=== PATIENT | female | born 2000 | race Caucasian/White ===

== ENCOUNTER 2022-04-10 11:01 | Outpatient (CLI) | payer BC, SELFPAY ==
--- NOTE | ~2022-04-10 | US_ITS ---
EXAMINATION: US pelvic complete DATE: 04/10/2022 12:09 INDICATION: Generalized pelvic pain. TECHNIQUE: Multiple transabdominal and endovaginal sonographic images of the pelvis were obtained. COMPARISON: None. FINDINGS: The uterus measures 10.1 x 3.3 x 3.7 cm. The endometrial complex measures 2 mm in thickness. The rig ht ovary measures 2.2 x 1.1 x 1.9 cm. The left ovary measures 3.3 x 1.4 x 2.7 cm. There is normal vas cular flow in the ovaries. There is no free fluid in the pelvis. Shadowing structure in the region of the vaginal vault may represent a reported Nuva ring. IMPRESSION: 1. Normal pelvic ultrasound. Reviewed, dictated and finalized at location A.
== END 2022-04-10 11:02 | disposition home or self-care (01) ==
LOC: ANHIMG 11:06
PROVIDERS: PCP Internal Medicine; Visit Provider Nurse Practitioner Obstetrics & Gynecology
DX: R10.2 Pelvic and perineal pain (principal); N93.9 Abnormal uterine and vaginal bleeding, unspecified
CPT/HCPCS: 76856

== ENCOUNTER 2023-07-06 10:15 | Emergency (ER) | payer BC, SELFPAY ==
--- NOTE | ~2023-07-06 | XR_ITS ---
EXAMINATION: XR foot RT min 3V DATE: 07/06/2023 12:09 INDICATION: Right fifth toe injury and pain. TECHNIQUE: 4 views of right foot were obtained. COMPARISON: Right ankle radiographs 10/24/2018 FINDINGS: Bone alignment is normal. No fracture. Joint spaces are normal. IMPRESSION: 1. No fracture. Reviewed, dictated and finalized at location A. IMPRESSION: 1. No fracture.
--- NOTE | ~2023-07-06 | XR_ITS ---
EXAMINATION: XR chest 2V DATE: 07/06/2023 11:00 INDICATION: Shortness of breath and midsternal chest pain TECHNIQUE: PA and lateral views of the chest were obtained. COMPARISON: None FINDINGS: The lungs are clear with no focal airspace opacities, pulmonary edema, pleural effusion or pneumothor ax. The cardiomediastinal silhouette is normal. Visualized bones and soft tissues are unremarkable. IMPRESSION: 1. Normal chest radiograph. Reviewed, dictated and finalized at location L. IMPRESSION: 1. Normal chest radiograph.
--- NOTE | 2023-07-06 10:16 | ECG_ITS ---
Measurements Intervals [place] Rate: 101 P: 70 ND: 129 QRS: 50 QRSD: 66 T: -5 QT: 328 QTc: 425 Interpretive Statements SINUS TACHYCARDIA POSSIBLE LEFT ATRIAL ENLARGEMENT [-0.1mV P WAVE IN V1/V2] NONSPECIFIC ST & T-WAVE ABNORMALITY ABNORMAL RHYTHM ECG NO PREVIOUS ECG AVAILABLE FOR COMPARISON Electronically Signed On 07-06-2023 13:24:10 CDT by Jermaine Garcia M.D.
[2023-07-06 10:18] VITALS: BP 142/80; PULSE 84; RESP 16; TEMP 36.5; O2SAT 100
[2023-07-06 10:34] LABS: Basophils Absolute Auto 0.1 K/mm3 (0.0-0.1); Basophils Percent Auto 1.1 % (0.2-1.2); Eosinophils Absolute Auto 0.1 K/mm3 (0-0.3); Eosinophils Percent Auto 1.4 % (0-4.4); Hematocrit 43.1 % (37.0-47.0); Hemoglobin 14.9 g/dL (12.0-15.0); Immature Granulocyte Absolute 0.02 K/mm3 (0.00-0.031); Immature Granulocyte Percent A 0.3 % (0-0.5); Lymphocytes Absolute Auto 2.34 K/mm3 (0.9-3.2); Lymphocytes Percent Auto 31.7 % (18.3-44.2); Mean Corpuscular HGB Conc 34.6 g/dl (32-36); Mean Corpuscular Hemoglobin 29.9 pg (26-34); Mean Corpuscular Volume 86.4 fl (80-100); Mean Platelet Volume 10.4 fl (7.4-10.4); Monocytes Absolute Auto 0.5 K/mm3 (0.1-0.6); Monocytes Percent Auto 6.8 % (2.6-8.5); Neutrophils Absolute Auto 4.3 K/mm3 (1.3-6.7); Neutrophils Percent Auto 58.7 % (45.5-73.1); Platelet Count Result 266 k/mm3 (150-375); Red Blood Count 4.99 M/mm3 (4.2-5.4); Red Cell Distribution Width 11.9 % (11.5-14.5); White Blood Count 7.4 K/mm3 (4.5-10.0)
[2023-07-06 10:43] LABS: Potassium 3.3 mmol/L (3.4-5.0)
[2023-07-06 10:44] LABS: Alanine Aminotransferase 27 U/L (6-35); Albumin Level 4.4 g/dL (3.5-5.1); Alkaline Phosphatase 87 U/L (38-126); Anion Gap 6 mmol/L (8-16); Aspartate Amino Transferase 27 U/L (14-36); Bilirubin,Total 0.5 mg/dL (0.2-1.3); Blood Urea Nitrogen 7 mg/dL (7-17); Calcium 9.3 mg/dL (8.4-10.2); Carbon Dioxide 24 mmol/L (22-30); Chloride 104 mmol/L (98-107); Estimated CRCL calculation 94 ml/min; Estimated Glomerular Filt Rate > 60; Glucose 94 mg/dL (65-110); INR 0.9; Lipase 142 U/L (23-300); Prothrombin Time 12.1 Seconds (11.1-14.7); Sodium 134 mmol/L (137-145)
[2023-07-06 10:45] LABS: Partial Thromboplastin Time 25.6 SECONDS (22.3-36.8)
[2023-07-06 10:55] LABS: Troponin I < 0.012 ng/mL (0.000-0.034)
[2023-07-06 11:58] VITALS: PULSE 69
--- NOTE | 2023-07-06 12:39 | PC.NURSE ---
pt ambulatory to bathroom
--- NOTE | 2023-07-06 12:47 | ED.CHESTPAIN ---
HPI - Chest Pain General Chief Complaint: Chest Pain Stated Complaint: cp Time Seen by Provider: 07/06/23 12:00 History of Present Illness HPI narrative: Patient is a 23-year-old female presenting with chest pain. Patient states that starting yesterday she developed substernal chest pain that goes to her right lower chest and her left upper chest. States that it became more severe this morning and was associated with shortness of breath. Also reports palpitations. No fevers or chills, lightheadedness, numbness or weakness, abdominal pain, vomiting, diarrhea, dysuria, leg swelling. Related Data Home Medications Medication Instructions Recorded Confirmed etonogestrel 0.12 mg-ethinyl 1 vag ring vaginal ONCE 12/23/19 12/23/19 estradiol 0.015 mg/24 hr vaginal ring (NuvaRing) lamotrigine 25 mg tablet 25 mg PO BID 07/06/23 lamotrigine 50 mg tablet,extended 50 mg PO BID 07/06/23 release 24 hr Allergies Allergy/AdvReac Type Severity Reaction Status Date / Time No Known Allergies Allergy Verified 12/23/19 14:12 Review of Systems Review of Systems: All systems reviewed & are unremarkable except as noted in HPI and below PMFSH Past Medical History Medical History Epilepsy Reports no meds nor seizures in 7 years Social History Social History Smoking status: Never smoker Alcohol intake: never Substance use: never Occupation/Education: occupation Gender identity (if verbalized by the patient): Female Exam Narrative: GENERAL: Well-appearing, well-nourished, and in no acute distress. HEAD: Normocephalic, atraumatic. EYES: PERRLA and EOMI. ENT: Nares clear, no rhinorrhea or epistaxis. Mucous membranes moist. NECK: Supple. CHEST: Clear to auscultation. No respiratory distress. HEART: Regular rate and rhythm. ABDOMEN: Soft, nontender, nondistended EXTREMITIES: Normal range of motion. No edema. SKIN: Warm, dry, no rash. NEURO: No focal deficits. Alert and oriented x3. PSYCH: Normal mood and affect. Course Vital Signs Vital signs: Vital Signs Temperature 97.7 F 07/06/23 10:18 Pulse Rate 84 07/06/23 10:18 Respiratory Rate 16 07/06/23 10:18 Blood Pressure 142/80 H 07/06/23 10:18 Pulse Oximetry 100 07/06/23 10:18 Temperature 97.7 F 07/06/23 10:18 Pulse Rate 69 07/06/23 15:30 Respiratory Rate 18 07/06/23 15:30 Blood Pressure 142/80 H 07/06/23 10:18 Pulse Oximetry 100 07/06/23 15:30 MDM - Chest Pain MDM Narrative Medical decision making narrative: Patient is a 23-year-old female presenting with chest pain and palpitations. Vitals within normal limits. Exam remarkable for the above. EKG per my interpretation shows sinus tachycardia, normal axis and intervals, no ST elevations or depressions. Mild hypokalemia on blood work. This has been repleted orally. Remainder of her blood work is unremarkable. Troponin is undetectable. D-dimer is normal. Magnesium within normal limits. Chest x-ray without acute abnormalities. Discussed the reassuring work-up with the patient. She is resting comfortably and states that she feels improved. Feel she is safe for outpatient management. Advised that she follow-up closely with her PCP. Appropriate return precautions given. Discharged in stable condition. Differential Diagnosis Differential diagnosis: Likely pneumothorax, stable angina, atypical chest pain, costochondritis and chest pain Medical Records Data Attestation: I reviewed the patient's medical records. Lab Data Attestation: I reviewed the patient's lab results. 07/06/23 10:28 07/06/23 10:29 Labs: Lab Results 07/06/23 07/06/23 07/06/23 Range/Units 10:28 10:29 13:15 WBC 7.4 (4.5-10.0) K/mm3 RBC 4.99 (4.2-5.4) M/mm3 Hgb 14.9 (12.0-15.0) g/dL Hct 43.1 (37.0-47.0) % MCV 86.4 (80
[2023-07-06 13:34] LABS: Magnesium 1.9 mg/dL (1.6-2.3)
[2023-07-06 13:43] LABS: Troponin I < 0.012 ng/mL (0.000-0.034)
[2023-07-06 13:52] LABS: D Dimer < 0.27 ug/mL (<0.48)
[2023-07-06] MEDS: KETOROLAC 15 MG/ML VIAL (*BKC) IV PUSH (14:08)
[2023-07-06] MEDS: POTASSIUM CHLORIDE 20 MEQ ER TABLET 40 MEQ PO (14:08)
[2023-07-06] MEDS: LACTATED RINGERS 1,000 ML 999 ML IV CONT (14:09)
[2023-07-06 15:30] VITALS: PULSE 69; RESP 18; O2SAT 100
== END 2023-07-06 15:30 | disposition home or self-care (01) ==
PROVIDERS: Emergency Medicine; Emergency Provider Emergency Medicine
DX: R07.89 Other chest pain (principal); S99.921A Unspecified injury of right foot, initial encounter; E87.6 Hypokalemia; R00.0 Tachycardia, unspecified; R94.31 Abnormal electrocardiogram [ECG] [EKG]; X58.XXXA Exposure to other specified factors, initial encounter
CPT/HCPCS: 36415; 71046; 73630; 80053; 83690; 83735; 84484; 85025; 85380; 85610; 85730; 93005; 96361; 96374; 99284; A9270; J1885; J7120